=== PATIENT | female | born 1935 | race Caucasian/White ===

== ENCOUNTER 2016-09-21 17:43 | Emergency (ER) | payer OTHER ==
[~2016-09-21] VITALS: Ht 160 cm; Wt 61.2 kg
[~2016-09-21 17:43] MED LIST: AMLO5TAB4 PO; CARV6.2554 PO; LEVO75TA7 PO; OXYB10TA4 PO; RIVA15TA PO; SIMV20TA2 PO
[2016-09-21 18:12] VITALS: BP 127/85; PULSE 78; RESP 20; TEMP 98.1; O2SAT 96
--- NOTE | 2016-09-21 18:18 | NUR ---
No ER beds available at this time. Pt placed to ER waiting room in stable condition.
--- NOTE | 2016-09-21 20:44 | NUR ---
Patient to ER bed 1 to gown for evaluation. Side rails up. Report given to CHEIKH Elliott.
--- NOTE | 2016-09-21 20:45 | NUR ---
PT IN BED 1 WITH C/O RIGHT SHOULDER PAIN . DR DELONG AWARE.
--- NOTE | 2016-09-21 21:00 | NUR ---
ER Dr. Sidhu at bedside examining patient.
[2016-09-21] MEDS ORDERED: KETOROLAC TROMETHAMINE 30 MG VIAL IM ONE (21:15)
[2016-09-21 21:24] VITALS: BP 121/84; PULSE 78; RESP 20; TEMP 98.1; O2SAT 96
--- NOTE | 2016-09-21 21:24 | NUR ---
Patient given written and verbal discharge instructions and verbalizes understanding. ER MD discussed with patient the results and treatment provided. Patient in stable condition. ID arm band removed. Rx of naprosyn given. Patient educated on pain management and to follow up with PMD. Pain Scale 0/10. Opportunity for questions provided and answered.
== END 2016-09-21 21:24 | disposition home or self-care (01) ==
LOC: SED 17:43
DX: M19.011 Primary osteoarthritis, right shoulder (principal); I10 Essential (primary) hypertension; E03.9 Hypothyroidism, unspecified; E78.00 Pure hypercholesterolemia, unspecified
CPT/HCPCS: 73020; 96372; 99284; J1885